=== PATIENT | female | born 1975 | race African-American/Black ===

== ENCOUNTER 2016-05-20 04:13 | Emergency (ER) | payer SELFPAY ==
[~2016-05-20 04:13] MED LIST: ACET500CAP PO; ALEVE COLD PO; ANADS PO; BACDS PO; BEN25 PO; BENTYL10 PO; CLARIT10 PO; DULERA 100 MCG/13 GM INH; EPIPEN0.3 IM; FLONASE NAS; FLOVENT DISK50 MCG INH; FLOVENT44 INH; FOLIC PO; GLUCOPHAGE1000 MG PO; GLUCOTROL5 PO; HYDROCODONE/ACETAMIN PO; KLONO5 PO; L40 PO; LOM PO; LORT7 PO; LORTAB 5 PO; MACRODANTIN 10100 MG PO; MUCINEX600 MG PO; NATALVIT1 TAB PO; PR25 PO; PRENAVITE PO; PRENAVITE PR PO; PRILOSEC OTC20 MG PO; PROVENTSOL INH; PROZAC40 MG PO; ROBITUSS11 OR; SINGULAIR1 PO; SYMBICORT 160/41 INH INH; SYMBICORT 80/4.1 INH INH; VERAMYST27.5 MCG NAS; VISINE0.05 % OPH; ZOFRANODT8 PO; [UNRECOGNIZED DRUG - OTHER] PO
[2016-05-20 04:58] LABS: BASOPHILS 0.3 %; BASOPHILS ABSOLUTE 0.02 10/3/uL (0.0-0.16); EOSINOPHILS 3.3 %; EOSINOPHILS ABSOLUTE 0.23 10/3/uL (0.0-0.53); ER CBC TAT 0 Hrs 09 Mins; HEMATOCRIT 36.1 % (36.0-48.0); HEMOGLOBIN 12.6 g/dL (12.0-16.0); IMMATURE GRANULOCYTES 0.3 %; IMMATURE GRANULOCYTES ABSOLUTE 0.02 10/3/uL (0.0-0.11); LYMPHOCYTES 37.1 %; LYMPHOCYTES ABSOLUTE 2.55 10/3/uL (0.67-4.30); MANUAL DIFF NO %; MEAN CORPUS HGB CONC 34.9 g/dL (32.0-36.0); MEAN CORPUSCULAR HEMOGLOB 30.6 pg (26.0-34.0); MEAN CORPUSCULAR VOLUME 87.6 fL (80-100); MEAN PLATELET VOLUME 9.4 fL (9.2-13.0); MONOCYTES ABSOLUTE 0.48 10/3/uL (0.21-1.20); NEUTROPHILS ABSOLUTE 3.58 10/3/uL (2.02-8.40); PLATELET COUNT 353 10/3/uL (150-400); RBC DISTRIBUTION WIDTH 12.2 % (12.0-16.0); RED CELL COUNT 4.12 10/6/uL (4.0-5.6); WHITE BLOOD CELLS 6.9 10/3/uL (4.5-10.5)
[2016-05-20 05:10] LABS: BUN (BLOOD UREA NITROGEN) 12 MG/DL (6-23); CALCIUM, SERUM 8.6 MG/DL (8.5-10.4); CHLORIDE, SERUM 101 MMOL/L (96-112); CO2 (CARBON DIOXIDE) 24 MMOL/L (24-34); GFR AFRICAN AMERICAN 106 ML/MIN (>=60); GFR NON AFRICAN AMERICAN 92 ML/MIN (>=60); POTASSIUM, SERUM 4.1 MMOL/L (3.5-5.3); SODIUM, SERUM 135 MMOL/L (135-148)
[2016-05-20 05:11] LABS: GLUCOSE, SERUM 361 MG/DL (60-99)
== END 2016-05-20 06:46 | disposition home or self-care (01) ==
LOC: ER 04:13
PROVIDERS: Nurse Practitioner
DX: J02.0 Streptococcal pharyngitis (principal); E11.65 Type 2 diabetes mellitus with hyperglycemia; J45.909 Unspecified asthma, uncomplicated; K21.9 Gastro-esophageal reflux disease without esophagitis; F32.9 Major depressive disorder, single episode, unspecified; F41.9 Anxiety disorder, unspecified; Z88.0 Allergy status to penicillin; Z91.013 Allergy to seafood; Z91.040 Latex allergy status; Z79.84 Long term (current) use of oral hypoglycemic drugs; Z79.899 Other long term (current) drug therapy
CPT/HCPCS: 71010; 80048; 82962; 85025; 87880; 99284; A9270-GY